=== PATIENT | male | born 1985 | race Caucasian/White ===

== ENCOUNTER 2023-07-03 19:43 | Emergency (ER) | payer OTHER ==
[2023-07-03 20:19] VITALS: BP 130/79
--- NOTE | 2023-07-03 20:35 | ED Physician Documentation ---
PD HPI URI - Stated complaint Stated Complaint: BODY ACHE/CHILLS/CONGESTION - Chief complaint Chief Complaint: General - History obtained from History obtained from: Patient - Additional information Additional information: 37-year-old male with no reported past medical history presents for evaluation of nonproductive cough, body aches, malaise. Recent travel. Taking ibuprofen at home with some relief of symptoms. Patient states that his prompted him to check in for evaluation since they are bringing their son in. Patient reports a history of pneumonia in the past, but this feels "much different". Review of Systems Constitutional: reports: Chills. denies: Fever Throat: reports: Sore throat. denies: Dental pain / toothache, Oral lesions / sores Cardiac: denies: Chest pain / pressure, Palpitations, Calf pain Respiratory: reports: Cough. denies: Dyspnea, Wheezing Skin: denies: Rash, Lesions, Laceration (s) Neurologic: denies: Generalized weakness, Focal weakness PD PAST MEDICAL HISTORY - Past Medical History Past Medical History: No Cardiovascular: None Respiratory: None Neuro: None Endocrine/Autoimmune: None GI: None : None HEENT: None Psych: None Musculoskeletal: None Derm: None - Past Surgical History Past Surgical History: No - Allergies Allergies/Adverse Reactions: Allergies Allergy/AdvReac Type Severity Reaction Status Date / Time No Known Drug Allergies Allergy Verified 07/03/23 19:49 - Social History Does the pt smoke?: No Smoking Status: Never smoker Does the pt drink ETOH?: No Does the pt have substance abuse?: No - Immunizations Immunizations are current?: No - POLST Patient has POLST: No PD ED PE NORMAL - Vitals Vital signs reviewed: Yes - General General: Alert and oriented X 3, No acute distress, Well developed/nourished - Cardiac Cardiac: RRR, Strong equal pulses - Respiratory Respiratory: No respiratory distress, Clear bilaterally - Abdomen Abdomen: Soft, Non tender, Non distended - Derm Derm: Normal color, Warm and dry, No rash - Extremities Extremities: No deformity, No tenderness to palpate, Normal ROM s pain, No edema - Neuro Neuro: Alert and oriented X 3, straddle bug driver 2-12 intact, No motor deficit, Normal speech - Psych Psych: Normal mood, Normal affect Results - Vitals Vitals: Vital Signs - 24 hr 07/03/23 07/03/23 19:49 20:45 Temperature 36.9 C Heart Rate 80 82 Respiratory 16 16 Rate Blood Pressure 130/79 O2 Saturation 97 98 Oxygen O2 Source Room air PD Medical Decision Making - ED course Complexity details: reviewed results, re-evaluated patient, considered differential, d/w patient ED course: Well-appearing patient with symptoms consistent with viral syndrome. Lungs are clear to auscultation bilaterally, saturating well on room air. No rales or rhonchi to suggest acute pneumonia. Patient counseled on presumptive diagnosis, recommended Tylenol and ibuprofen as needed for symptoms, maintaining hydration, and getting plenty of rest. Departure - Departure Disposition: 01 Home, Self Care Clinical Impression: Upper respiratory infection Condition: Stable Instructions: ED Upper Resp Infec No Abx Tx Comments: Take Tylenol and ibuprofen as needed for fever or bodyaches. Make sure to stay hydrated get plenty of rest. Forms: PCP List Discharge Date/Time: 07/03/23 20:46
[2023-07-03 20:47] VITALS: O2SAT 98
== END 2023-07-03 20:46 | disposition home or self-care (01) ==
LOC: ED 19:43
DX: J06.9 Acute upper respiratory infection, unspecified (principal)
CPT/HCPCS: 99282; 99283